=== PATIENT | female | born 1965 | race Caucasian/White ===

== ENCOUNTER 2022-03-02 09:00 | Inpatient (IN) | payer MEDICARE, OTHER ==
[~2022-03-02] VITALS: Ht 167.6 cm; Wt 89.4 kg
[2022-03-02] MEDS ORDERED: HALOPERIDOL LACTATE 5 MG/1 ML VIAL ONE (09:26)
[2022-03-02] MEDS ORDERED: HALOPERIDOL LACTATE 5 MG/1 ML VIAL IM ONE (09:30)
[2022-03-02] MEDS ORDERED: LITH300C2 PO (09:32)
[2022-03-02] MEDS ORDERED: MAG-55 PO (09:32)
[2022-03-02] MEDS ORDERED: MAGN400O6 PO (09:32)
[2022-03-02] MEDS ORDERED: ACET-2154 PO (09:32)
[2022-03-02] MEDS ORDERED: RISP3TAB5 PO (09:32)
[2022-03-02] MEDS ORDERED: MIDAZOLAM HCL 2 MG/2 ML VIAL ONE (09:59)
[2022-03-02] MEDS ORDERED: MIDAZOLAM HCL 2 MG/2 ML VIAL IM ONE (10:00)
[2022-03-02] MEDS ORDERED: MIDAZOLAM HCL 5 MG/ML VIAL ONE (10:01)
[2022-03-02 10:32] LABS: HEMATOCRIT 37.1 % (31.2-41.9); MEAN CORPUSCULAR HEMOGLOBIN 31.7 uug (24.7-32.8); MEAN CORPUSCULAR VOLUME 92.7 fL (75.5-95.3); PLATELET COUNT (AUTO) 236 K/uL (179-408)
[2022-03-02 10:45] LABS: CARBON DIOXIDE 31 mmol/L (21-32); CHLORIDE 105 mmol/L (98-107); CREATININE 0.7 mg/dL (0.6-1.3); GLUCOSE 97 mg/dL (74-106); POTASSIUM 4.2 mmol/L (3.5-5.1); UREA NITROGEN, BLOOD 14 mg/dL (7-18)
[2022-03-02 10:51] LABS: ALANINE AMINOTRANSFERASE 24 U/L (14-59); ALKALINE PHOSPHATASE 67 U/L (50-136); ASPARTATE AMINOTRANSFERASE 14 U/L (15-37); BILIRUBIN,TOTAL 0.3 mg/dL (0.2-1.0); TOTAL PROTEIN, SERUM 6.8 g/dL (6.4-8.2)
[2022-03-02 10:52] LABS: ACETAMINOPHEN < 2.0 ug/mL (10-30)
[2022-03-02 11:59] LABS: *AMPHETAMINE, URINE NEGATIVE (NEGATIVE); *CANNABINOID, URINE NEGATIVE (NEGATIVE); *COCCAINE, URINE NEGATIVE (NEGATIVE); *OPIATE, URINE NEGATIVE (NEGATIVE); *PHENCYCLIDINE SCREEN,URINE NEGATIVE (NEGATIVE)
[2022-03-02] MEDS ORDERED: ACETAMINOPHEN 325 MG TABLET PO PRN (15:00)
[2022-03-02] MEDS ORDERED: MAGNESIUM HYDROXIDE 30 ML LIQUID UDC PO PRN (15:00)
[2022-03-02] MEDS ORDERED: MAG HYDROX/AL HYDROX/SIMETH 30 ML LIQUID UDC PO PRN (15:00)
[2022-03-02] MEDS ORDERED: BLOOD SUGAR DIAGNOSTIC 1 EACH STRIP VI ONE (15:15)
[2022-03-02 15:20] VITALS: BP 99/77
[2022-03-02 19:58] VITALS: BP 101/52
[2022-03-03 07:30] VITALS: BP 106/68
[2022-03-03] MEDS: LITHIUM CARBONATE 300 MG CAPSULE PO SCH ×2 (10:41→20:07)
[2022-03-03] MEDS: risperiDONE 1 MG TABLET PO SCH (12:22)
[2022-03-03 16:00] VITALS: BP 115/74
[2022-03-03 19:48] VITALS: BP 110/66
[2022-03-03] MEDS ORDERED: risperiDONE 1 MG TABLET PO SCH (21:00)
[2022-03-03] MEDS: TEMAZEPAM 7.5 MG CAPSULE PO PRN (22:05)
[2022-03-04] MEDS: LORAZEPAM 0.5 MG TABLET PO PRN (00:01)
[2022-03-04 07:30] VITALS: BP 105/71
[2022-03-04] MEDS: LITHIUM CARBONATE 300 MG CAPSULE PO SCH ×2 (09:15→20:21)
[2022-03-04] MEDS: risperiDONE 1 MG TABLET PO SCH ×2 (09:15→13:07)
[2022-03-04 13:27] LABS: *BILIRUBIN,URIN NEGATIVE (NEGATIVE); *BLOOD, URINE NEGATIVE (NEGATIVE); *CLARITY,URINE CLEAR (CLEAR); *COLOR,URINE YELLOW (YELLOW); *KETONES,URINE NEGATIVE (NEGATIVE); *UROBILINOGEN,URINE 0.2 E.U./dl (NORMAL); LEUKOCYTE ESTERASE ,URINE NEGATIVE (NEGATIVE); NITRITE, URINE NEGATIVE (NEGATIVE); UGLUCOSE NEGATIVE (NEGATIVE)
[2022-03-04] MEDS: risperiDONE 2 MG TABLET PO SCH (20:21)
[2022-03-04 20:35] VITALS: BP 109/67
[2022-03-04] MEDS ORDERED: risperiDONE 1 MG TABLET PO SCH (21:00)
[2022-03-05] MEDS: LITHIUM CARBONATE 300 MG CAPSULE PO SCH ×2 (08:35→20:23)
[2022-03-05] MEDS: risperiDONE 1 MG TABLET PO SCH ×2 (08:35→12:54)
[2022-03-05 16:28] VITALS: BP 124/73
[2022-03-05 20:08] VITALS: BP 103/55
[2022-03-05] MEDS: risperiDONE 2 MG TABLET PO SCH (20:23)
[2022-03-05] MEDS: TEMAZEPAM 7.5 MG CAPSULE PO PRN (22:56)
[2022-03-06] MEDS: risperiDONE 1 MG TABLET PO SCH ×2 (08:02→12:18)
[2022-03-06] MEDS: LITHIUM CARBONATE 300 MG CAPSULE PO SCH ×2 (08:02→20:32)
[2022-03-06 16:05] VITALS: BP 109/72
[2022-03-06 19:49] VITALS: BP 104/62
[2022-03-06] MEDS: risperiDONE 2 MG TABLET PO SCH (20:32)
[2022-03-06] MEDS: TEMAZEPAM 7.5 MG CAPSULE PO PRN (22:22)
[2022-03-07 07:30] VITALS: BP 85/52
[2022-03-07] MEDS: risperiDONE 1 MG TABLET PO SCH ×2 (08:04→12:47)
[2022-03-07] MEDS: LITHIUM CARBONATE 300 MG CAPSULE PO SCH ×2 (08:04→20:21)
[2022-03-07 13:34] VITALS: BP 92/54
[2022-03-07 16:00] VITALS: BP 101/63
[2022-03-07 19:41] VITALS: BP 118/85
[2022-03-07] MEDS: LORAZEPAM 0.5 MG TABLET PO PRN (20:20)
[2022-03-07] MEDS: risperiDONE 2 MG TABLET PO SCH (20:21)
[2022-03-08 07:34] VITALS: BP 107/59
[2022-03-08] MEDS: risperiDONE 1 MG TABLET PO SCH ×2 (08:32→13:11)
[2022-03-08] MEDS: LORAZEPAM 0.5 MG TABLET PO PRN (08:32)
[2022-03-08] MEDS: LITHIUM CARBONATE 300 MG CAPSULE PO SCH ×2 (08:32→21:45)
[2022-03-08 16:09] VITALS: BP 95/60
[2022-03-08 19:46] VITALS: BP 101/52
[2022-03-08] MEDS: risperiDONE 2 MG TABLET PO SCH (21:44)
[2022-03-09] MEDS: risperiDONE 1 MG TABLET PO SCH ×3 (08:56→17:09)
[2022-03-09] MEDS: LITHIUM CARBONATE 300 MG CAPSULE PO SCH ×2 (08:56→20:26)
[2022-03-09] MEDS: LORAZEPAM 0.5 MG TABLET PO PRN (08:56)
[2022-03-09 15:03] VITALS: BP 91/51
[2022-03-09 19:46] VITALS: BP 98/58
[2022-03-09] MEDS: risperiDONE 2 MG TABLET PO SCH (20:26)
[2022-03-10 07:30] VITALS: BP 111/68
[2022-03-10] MEDS: risperiDONE 1 MG TABLET PO SCH ×3 (08:28→18:00)
[2022-03-10] MEDS: LITHIUM CARBONATE 300 MG CAPSULE PO SCH ×2 (08:28→20:13)
[2022-03-10 12:37] LABS: HEMATOCRIT 35.4 % (31.2-41.9); MEAN CORPUSCULAR VOLUME 92.6 fL (75.5-95.3); PLATELET COUNT (AUTO) 237 K/uL (179-408)
[2022-03-10 12:57] LABS: BILIRUBIN,TOTAL 0.3 mg/dL (0.2-1.0); CREATININE 0.7 mg/dL (0.6-1.3); TOTAL PROTEIN, SERUM 6.8 g/dL (6.4-8.2)
[2022-03-10 16:00] VITALS: BP 128/62
[2022-03-10 20:00] VITALS: BP 108/57
[2022-03-10] MEDS: risperiDONE 2 MG TABLET PO SCH (20:14)
[2022-03-10] MEDS: TEMAZEPAM 7.5 MG CAPSULE PO PRN (21:21)
[2022-03-11 07:41] VITALS: BP 109/70
[2022-03-11] MEDS: LITHIUM CARBONATE 300 MG CAPSULE PO SCH ×2 (08:21→20:24)
[2022-03-11] MEDS: risperiDONE 1 MG TABLET PO SCH ×3 (08:21→17:14)
[2022-03-11 16:13] VITALS: BP 113/74
[2022-03-11] MEDS: risperiDONE 2 MG TABLET PO SCH (20:24)
[2022-03-11] MEDS: TEMAZEPAM 7.5 MG CAPSULE PO PRN (21:08)
[2022-03-12 07:35] VITALS: BP 120/67
[2022-03-12] MEDS: LITHIUM CARBONATE 300 MG CAPSULE PO SCH ×2 (09:49→21:01)
[2022-03-12] MEDS: risperiDONE 1 MG TABLET PO SCH ×3 (09:50→17:13)
[2022-03-12 16:50] VITALS: BP 118/71
[2022-03-12 20:24] VITALS: BP 95/59
[2022-03-12] MEDS: risperiDONE 2 MG TABLET PO SCH (21:01)
[2022-03-13 07:40] VITALS: BP 93/53
[2022-03-13] MEDS: risperiDONE 1 MG TABLET PO SCH ×3 (08:59→16:39)
[2022-03-13] MEDS: LITHIUM CARBONATE 300 MG CAPSULE PO SCH ×2 (08:59→20:18)
[2022-03-13 16:00] VITALS: BP 92/56
[2022-03-13] MEDS: risperiDONE 2 MG TABLET PO SCH (20:18)
[2022-03-13] MEDS: TEMAZEPAM 7.5 MG CAPSULE PO PRN (20:46)
[2022-03-13 22:00] VITALS: BP 95/52
[2022-03-14 07:30] VITALS: BP 96/63
[2022-03-14] MEDS: risperiDONE 1 MG TABLET PO SCH ×3 (09:09→17:14)
[2022-03-14] MEDS: LITHIUM CARBONATE 300 MG CAPSULE PO SCH ×2 (09:09→20:26)
[2022-03-14 16:12] VITALS: BP 94/57
[2022-03-14 19:43] VITALS: BP 101/64
[2022-03-14] MEDS: risperiDONE 2 MG TABLET PO SCH (20:26)
[2022-03-14] MEDS: TEMAZEPAM 7.5 MG CAPSULE PO PRN (23:22)
[2022-03-15 07:31] VITALS: BP 104/66
[2022-03-15] MEDS: risperiDONE 1 MG TABLET PO SCH ×2 (08:54→13:13)
[2022-03-15] MEDS: LITHIUM CARBONATE 300 MG CAPSULE PO SCH (08:54)
== END 2022-03-15 13:30 | DRG 885 ==
LOC: ER 09:00 → GPS 14:36
PROVIDERS: ADMIT Psychiatry & Neurology Psychosomatic Medicine; ATTEND Nurse Practitioner Family
DX: F25.0 Schizoaffective disorder, bipolar type (principal); F01.50 Vascular dementia, unspecified severity, without behavioral disturbance, psychotic disturbance, mood disturbance, and anxiety; E44.1 Mild protein-calorie malnutrition; Z79.899 Other long term (current) drug therapy; G62.9 Polyneuropathy, unspecified; Z68.31 Body mass index [BMI] 31.0-31.9, adult; E88.09 Other disorders of plasma-protein metabolism, not elsewhere classified; K21.9 Gastro-esophageal reflux disease without esophagitis; Z20.822 Contact with and (suspected) exposure to COVID-19; Z73.6 Limitation of activities due to disability; F29 Unspecified psychosis not due to a substance or known physiological condition; F19.11 Other psychoactive substance abuse, in remission
CPT/HCPCS: 36415; 70030-TC; 71045; 85025; 87086; 93005; 97161; A4663; J1630; J2250